=== PATIENT | male | born 1980 | race Caucasian/White ===

== ENCOUNTER 2016-08-27 02:11 | Emergency (ER) | payer SELFPAY ==
[~2016-08-27] VITALS: Ht 182.9 cm; Wt 90.0 kg
[2016-08-27 02:10] VITALS: O2SAT 100
[2016-08-27] MEDS ORDERED: NALOXONE HCL 2 MG/2 ML VIAL ONE (02:13)
[2016-08-27 02:16] VITALS: BP 161/96; PULSE 89; RESP 12; TEMP 97.9; O2SAT 100
[2016-08-27 03:03] VITALS: BP 176/67; PULSE 88; RESP 18; O2SAT 99
--- NOTE | 2016-08-27 04:23 | PD ---
HPI Chief Complaint: OD/ Ingestion Time Seen by Provider: 03:09 Travel History International Travel<30 days: No Contact w/Intl Traveler<30days: No Traveled to known affect area: No History of Present Illness HPI 36-year-old male presents to the emergency department after reported overdose. Apparently his called after she found him slumped over. He reportedly stepped out the smoke a cigarette her make a phone call. He didn't come back in and she went to go check on him and found him stuporous. He apparently has a history of heroin use. EMS reports to give him 0.4 mg of Narcan with substantial improvement in his mental status. Patient denies any illicit drug use or opiate use. History Past Medical History Medical History: Denies Significant Hx Past Surgical History Surgical History: No Previous Surgery Social History Alcohol Use: No Tobacco Use: Yes (1/2 PACK A DAY ) Allergies-Medications (Allergen,Severity, Reaction): Coded Allergies: No Known Allergies (Unverified , 08/27/16) Review of Systems Except as stated in HPI: all other systems reviewed are Neg Physical Exam Narrative GENERAL: 36 year-old man, sluggishly responsive. SKIN: Focused skin assessment warm/dry. HEAD: Atraumatic. Normocephalic. CARDIOVASCULAR: Regular rate and rhythm. No murmur appreciated. RESPIRATORY: No accessory muscle use. Clear to auscultation. Breath sounds equal bilaterally. GASTROINTESTINAL: Abdomen soft, non-tender, nondistended. Hepatic and splenic margins not palpable. MUSCULOSKELETAL: No obvious deformities. No edema. NEUROLOGICAL decreased alertness. Require substantial stimulation to wake him up. He will answer some questions but nod off mid sentence. No obvious focal deficits. Data Data Last Documented VS Vital Signs Date Time Temp Pulse Resp B/P Pulse Ox O2 Delivery O2 Flow Rate FiO2 08/27/16 03:03 88 18 176/67 99 Room Air 08/27/16 02:16 97.9 Orders Naloxone Inj (Narcan Inj) (08/27/16 02:13) Alcohol (Ethanol) (08/27/16 03:09) Labs Laboratory Tests Test 08/27/16 03:40 Ethyl Alcohol Level LESS THAN 3 MG/DL MDM Medical Decision Making Medical Screen Exam Complete: Yes Emergency Medical Condition: Yes Differential Diagnosis Opiate overdose, intoxication, occult injury, other Narrative Course Medical decision making Is a 36 old male presents emergency department for suspected overdose. We gave him 2 mg of Narcan slow IV push in good effect. He woke up. He is a little bit of a septal really admits any acid radius or alcohol use. He is monitored emergency several hours. He did become more sluggish again after couple hours. His alcohol is negative. He'll be monitored emergency department until he sobered them be allowed to be discharged. Diagnosis Primary Impression: Opioid overdose Additional Instructions: Avoid illicit drugs. Follow-up with her primary doctor for not completely well in the next 2-4 days. Disposition: 01 DISCHARGE HOME Condition: Stable Severiano Meyer MD Aug 27, 2016 04:23
[2016-08-27 09:40] VITALS: BP 161/78; PULSE 86; RESP 14; TEMP 98; O2SAT 99
== END 2016-08-27 10:41 | disposition home or self-care (01) ==
LOC: NEPC 02:11
DX: T40.2X1A Poisoning by other opioids, accidental (unintentional), initial encounter (principal)
CPT/HCPCS: 80307; 99284; J2310